=== PATIENT | female | born 1990 | race Caucasian/White ===

== ENCOUNTER 2024-02-17 13:31 | Outpatient (CLI) | payer OTHER, SELFPAY ==
--- NOTE | ~2024-02-17 | XR_ITS ---
3 VIEWS LUMBAR SPINE Ordering provider: Jeniffer Ren APRN History: . M54.9 - Dorsalgia, unspecified . Comparison: None. FINDINGS: VERTEBRAL BODIES: No visible fracture or subluxation. DISK SPACES: Normal. SOFT TISSUES: Normal. IMPRESSION: No acute osseous abnormality lumbar spine. Reviewed, dictated and finalized at location A.
[2024-02-17 14:26] LABS: Add Urine Microscopic? NO; Appearance Urine Clear (Clear); Bilirubin Urine Negative (Negative); Blood Urine Negative (Negative); Color Urine Yellow (Yellow); Glucose Urine UA Negative (Negative); Ketones Urine Negative (Negative); Leukocyte Esterase Ur Negative LEU/UL (Negative); Nitrate Urine Negative (Negative); Protein Urine Negative (Negative); Urobilinogen Urine Negative mg/dL (0.2-1.0)
== END 2024-02-17 13:32 | disposition home or self-care (01) ==
PROVIDERS: PCP Nurse Practitioner Family; Visit Provider Nurse Practitioner Family
DX: M54.9 Dorsalgia, unspecified (principal)
CPT/HCPCS: 72100; 81003

== ENCOUNTER 2024-02-24 15:37 | Outpatient (RCR) | payer OTHER, SELFPAY ==
--- NOTE | 2024-02-24 16:37 | OPREHPOC ---
Outpatient Therapy Plan of Care This is a Multidisciplinary Plan of Care that may contain components documented by all disciplines (PT, OT, and ST.) PT Problem 1 PT Problem #1 Knowledge Deficit PT Goal 1 Goal / Goal Update 1. independent and compliant with HEP Target Visit 5 PT Problem 2 PT Problem #2 Pain PT Goal 1 Goal / Goal Update 1. patient to report reduction of all R lower back pain Target Visit 10 PT Problem 3 PT Problem #3 Impaired Strength PT Goal 1 Goal / Goal Update 1. 5/5 R hip strength 2. 3+/5 or better abdominal strength Target Visit 10 PT Problem 4 PT Problem #4 Impaired Functional Mobil PT Goal 1 Goal / Goal Update 1. patient to report sitting without issues or restrictions on time. 2. oswestry to display 0% functional deficits
--- NOTE | 2024-02-24 16:37 | PTOPEVAL1 ---
Assessment and note entered by JT File, PT Evaluation Information Assessment Status Evaluation ICD-10 Condition Codes (PT) Pain in low back M54.50 Other ICD-10 Condition Codes ( M54.9 PT) Onset 01/08/24 Subjective Information patient reports she cannot recall an injury. she reports the began having pain when sitting down one day. she reports she was on a road trip for about 18 hours prior to the pain beginning. she reports she has increased pain with sitting. she reports the pain is mostly in the lower R back and does not go down the R LE. she reports she did have an Xray of the lower back. she has not had an MRI. she reports she was also ruled out for any kidney issues. 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 she reports when she is up and moving the pain does not bother her. Reported Pain Level Pain Score 0: Self Report Assessment PT Clinical Summary mrs. alcantar is a 34 yo woman who presents to skilled PT services for evaluation and treatment of R lower back pain. she presents with deficits in lumbar rom, hip strength, posture, and core stability. she displays signs and symptoms of R PSIS pain. she does not have any radicular symptoms at this time. she would benefit from continued skilled PT to address her objective/ functional deficits and return to prior level functional activity performance/quality of life. Plan of Care Interventions Electrical Stimulation,Hot Pack/Cold Pack,Manual Therapy,Mechanical Traction,Neuro Re-education, Patient/Caregiver Educati,Therapeutic Activities, Therapeutic Exercise PT Services Indicated Yes Treatment Frequency and 2x weekly for 10 visits Duration These treatments will address the objective and functional deficits as defined above. The patient will be advanced safely and appropriately in order for the patient to progress towards his/her prior level of function. Additional exercises will be introduced and as well as a comprehensive home exercise program upon discharge, if needed, ?to ensure carryover of functional gains achieved in the clinic. This treatment plan has been reviewed and agreement upon by the patient.
--- NOTE | 2024-05-18 10:54 | PCPTNOTE ---
patient cancelled her last appointment and did not return
== END 2024-03-02 13:45 | disposition home or self-care (01) ==
LOC: CHSPT 15:37
PROVIDERS: PCP Family Medicine; Visit Provider Nurse Practitioner Family
DX: M54.9 Dorsalgia, unspecified (principal)
CPT/HCPCS: 97014; 97110; 97161; G0283